=== PATIENT | male | born 1995 | race Caucasian/White ===

== ENCOUNTER 2016-10-14 15:55 | Emergency (ER) | payer BC ==
[2016-10-14 16:15] VITALS: TEMP 98.8
--- NOTE | 2016-10-14 16:58 | EDPHY ---
H & P Stated Complaint: major trauma ski injury 09/26 needs follow up with o2 pain Source: Patient Exam Limitations: No limitations - Personal History Current Tetanus/Diphtheria Vaccine: Yes - Medical/Surgical History Hx Asthma: No Hx Chronic Respiratory Disease: No Hx Diabetes: No Hx Cardiac Disease: No Hx Renal Disease: No Hx Cirrhosis: No Hx Alcoholism: No Hx HIV/AIDS: No Hx Splenectomy or Spleen Trauma: No Other PMH: denies - Social History Smoking Status: Never smoked Time Seen by Provider: 10/14/16 16:19 HPI/ROS: CHIEF COMPLAINT: medication refill HISTORY OF PRESENT ILLNESS: 21-year-old male presents emergency department with his mother requesting medication refill and referral to trauma surgeon. Patient was in a ski accident in [place] on September 26 sustaining a right scapular fracture, for right-sided rib fractures and T9 compression fracture. Patient also had a hemopneumothorax on the right. Patient was hospitalized for 1 week, discharged 11 days ago. He was instructed to follow up with an orthopedist and a PCP to follow his chest x-ray and oxygen needs. Patient saw Dr. ferris today who ordered a CT scan of his scapula, he told them he did not deal with oxygen needs and pneumothoracis and recommended they come to the ED. Patient is a student at [employer], mother flew in from [place] to help him with his appointment today. Patient is concerned he is running out of his pain medications in 3 days. Patient reports pain in back, pain with deep breaths. He denies worsening or increased shortness of breath, chest pain, any new symptoms or concerns. REVIEW OF SYSTEMS: A comprehensive 10 point review of systems is otherwise negative aside from elements mentioned in the history of present illness. (Michelle Davila) - Physical Exam Exam: Physical Exam Gen: Alert and Oriented, NAD HEENT: PERRL, moist mucous membranes NECK: no meningismus CV: regular rate and regular rhythm PULM: CTAB, no wheezes ABDOMEN: soft, non tender to palpation, BS present BACK: No CVA tenderness NEURO: Neurologically grossly intact EXTREMITIES: normal appearing SKIN: no rash or break in skin on exposed skin PSYCH: answers questions appropriately. (Michelle Davila) Constitutional: Initial Vital Signs Temperature (C) 37.1 C 10/14/16 16:11 Heart Rate 96 10/14/16 16:11 Respiratory Rate 20 10/14/16 16:11 Blood Pressure 117/81 H 10/14/16 16:11 O2 Sat (%) 95 10/14/16 16:11 O2 Delivery Mode Nasal Cannula O2 (L/minute) 2 Allergies/Adverse Reactions: No Known Allergies Allergy (Verified 10/14/16 16:10) Home Medications: Medication Instructions Recorded Celecoxib 10/14/16 DIAZEPAM 10/14/16 Diazepam [Valium 5 MG (*)] 5 mg PO Q8 PRN #20 tab 10/14/16 Oxycodone HCl 10/14/16 morphINE 10/14/16 oxyCODONE IR [Oxycodone Ir (*)] 5 mg PO Q4-6PRN PRN #20 tab 10/14/16 Medical Decision Making - Diagnostics Imaging: Chest x-ray independently reviewed by me- Findings: Lungs are clear, without infiltrate or consolidation. Heart size and pulmonary vascularity are normal. A right posterior pleural effusion is stable. There is no remnant pneumothorax. Bones are unremarkable for age. Impression: 1. Stable posterior right pleural fluid x 2 weeks. 2. No pneumothorax. Dictated By: Santana Shields MD (Michelle Davila) ED Course/Re-evaluation: I did not see this patient while he was in the emergency department. However his care was discussed with the nurse practitioner while the patient was in the department. I agree with treatment plan and management (Julio C Curran) Departure - Departure Disposition: Home, Routine, Self-Care Clinical Impression: Medication refill, Pneumothorax on right Condition: Good Instructions: Traumatic Pneumothorax (ED) Additional Instructions: Wear oxygen until your follow-up appointment with the trauma surgeon. Take your medication as prescribed. When you run out of the Celebrex start taking 600 mg of ibuprofen every 8 hours with food for 5 days. You were given a prescription for oxycodone and Valium in the emergency department, you need to follow up with the trauma surgeon or primary care provider to receive more of these medications if needed. Follow up with physical therapy at [facility], they may be able to tape your back. I am referring you to a primary care provider and the trauma surgeon to establish care with. Call them both 1st thing tomorrow morning to schedule these appointments. Referrals: Constantino Zhou MD [Medical Doctor] - As per Instructions (Trauma surgeon on- call) Rebekah Mireles MD [Medical Doctor] - As per Instructions (Primary care provider investment professional) Prescriptions: Diazepam [Valium 5 MG (*)] 5 mg PO Q8 PRN #20 tab PRN Reason: Pain, Moderate oxyCODONE IR [Oxycodone Ir (*)] 5 mg PO Q4-6PRN PRN #20 tab PRN Reason: Pain, Mod. Unable To Take Po
[2016-10-14 17:40] VITALS: BP 124/78; PULSE 94; RESP 16; O2SAT 96
== END 2016-10-14 17:40 | disposition home or self-care (01) ==
DX: Z76.0 Encounter for issue of repeat prescription (principal); S27.0XXA Traumatic pneumothorax, initial encounter; V00.328A Other snow-ski accident, initial encounter; Y92.89 Other specified places as the place of occurrence of the external cause; Y93.23 Activity, snow (alpine) (downhill) skiing, snowboarding, sledding, tobogganing and snow tubing